=== PATIENT | female | born 1960 | race Caucasian/White ===

== ENCOUNTER 2018-09-01 23:57 | Emergency (ER) | payer BC ==
[2018-09-02] MEDS ORDERED: Ondansetron 4 MG Tab.DIS PO ONE (01:30)
--- NOTE | 2018-09-02 02:40 | EDM.PDOC ---
ED HPI GENERAL MEDICAL PROBLEM - General Chief Complaint: Head Injury Stated Complaint: FELL ON ICE Time Seen by Provider: 09/02/18 00:19 Source of Information: Reports: Patient, Family History Limitations: Reports: No Limitations - History of Present Illness INITIAL COMMENTS - FREE TEXT/NARRATIVE: This is a 58-year-old female. She was walking outside and her feet slipped out on the ice she fell backwards and hit her head. She has a large hematoma to the back of her head. She states she had no loss of consciousness and her back is not hurting in her buttocks is hurting but her neck is also sore. She comes to the ER for evaluation. She is complaining of less headache with this hematoma to her scalp. There are no lacerations and no bleeding is noted. Posterior Head Pain Score (Numeric/FACES): 6 - Related Data Allergies Allergy/AdvReac Type Severity Reaction Status Date / Time Sulfa (Sulfonamide Allergy Hives Verified 09/02/18 00:12 Antibiotics) Home Meds: Home Meds Acetaminophen/oxyCODONE [Percocet 325-5 MG] 1 - 2 each PO Q6H PRN #20 tab [Rx] Ondansetron [Zofran ODT] 4 mg PO Q6H PRN #12 tab.dis 09/02/18 [Rx] Past Medical History - Past Health History Medical/Surgical History: Denies Medical/Surgical History Social & Family History - Family History Family Medical History: Noncontributory - Tobacco Use Smoking Status *Q: Never Smoker - Caffeine Use Caffeine Use: Reports: Coffee, Soda - Recreational Drug Use Recreational Drug Use: No ED ROS GENERAL - Review of Systems Review Of Systems: See Below Constitutional: Denies: Fever, Chills HEENT: Reports: Other (As per history of present illness) Respiratory: Reports: No Symptoms Cardiovascular: Reports: No Symptoms Endocrine: Reports: No Symptoms GI/Abdominal: Reports: Nausea. Denies: Vomiting : Reports: No Symptoms Musculoskeletal: Reports: Neck Pain Skin: Reports: Other (Scalp hematoma) Neurological: Reports: Headache. Denies: Confusion, Dizziness, Syncope Psychiatric: Reports: No Symptoms Hematologic/Lymphatic: Reports: No Symptoms ED EXAM, HEAD INJURY - Physical Exam Exam: See Below Exam Limited By: No Limitations General Appearance: Alert, WD/WN, No Apparent Distress Head: Other (Patient has a hematoma to the posterior scalp about 8 cm in diameter) Nexus Criteria: No: Posterior, Midline Cervical Tenderness Eyes: Bilateral Eye: Normal Inspection Ears: Normal External Exam, Normal Canal, Normal TMs Nose: Normal Inspection Throat/Mouth: Normal Inspection, Normal Lips, Normal Voice, No Airway Compromise Neck: Full Range of Motion, Other (She has some mild paraspinal muscle soreness on palpation but no midline spine pain) Respiratory: No Respiratory Distress, Lungs Clear, Normal Breath Sounds Cardiovascular: Regular Rate, Rhythm, No Murmur Back Exam: Full Range of Motion Extremities: Normal Inspection, Normal Range of Motion Neurologic: Alert, Oriented x 3 Skin: Normal Color, Warm/Dry - Benton Coma Score Best Eye Response (Benton): (4) Open Spontaneously Best Verbal Response (Benton): (5) Oriented Best Motor Response (Federica): (6) Obeys Commands Benton Total: 15 Course - Vital Signs Last Recorded V/S: Last Vital Signs Temp 97.0 F 09/02/18 00:12 Pulse 63 09/02/18 00:12 Resp 16 09/02/18 00:12 BP 135/83 09/02/18 00:12 Pulse Ox 100 09/02/18 00:12 - Orders/Labs/Meds Orders: Active Orders 24 hr Category Date Time Status Cervical Spine wo Cont [CT] Stat Exams 09/02/18 00:32 Ordered Head wo Cont [CT] Stat Exams 09/02/18 00:32 Taken Meds: Medications Discontinued Medications Generic Name Dose Route Start Last Admin Trade Name Freq PRN Reason Stop Dose Admin Ondansetron HCl 4 mg 09/02/18 01:30 09/02/18 01:34 Zofran Odt PO 09/02/18 01:31 4 mg ONETIME ONE Administration - Radiology Interpretation Free Text/Narrative:: CT scan of the head did not show any acute intracranial abnormalities it did show the posterior scalp hematoma. CT scan of the cervical spine is not show any acute changes. - Re-Assessments/Exams Free Text/Narrative Re-Assessment/Exam: 09/02/18 02:40 I spoke to the patient as well as the significant other regarding the CT scan of the head and the neck. I encouraged her to put ice on the hematoma for the next 48 hours, to sleep and rest as much as she can for the next 48 hours and to follow-up with her family doctor middle of the week for recheck. She is to use the medicine for pain and nausea as needed. Departure - Departure Time of Disposition: 02:40 Disposition: Home, Self-Care 01 Condition: Fair Clinical Impression: Scalp hematoma Qualifiers: Encounter type: initial encounter Qualified Code(s): S00.03XA - Contusion of scalp, initial encounter Minor head injury Qualifiers: Encounter type: initial encounter Qualified Code(s): S09.90XA - Unspecified injury of head, initial encounter Cervical strain, acute Qualifiers: Encounter type: initial encounter Qualified Code(s): S16.1XXA - Strain of muscle, fascia and tendon at neck level, initial encounter - Discharge Information *PRESCRIPTION DRUG MONITORING PROGRAM REVIEWED*: No *COPY OF PRESCRIPTION DRUG MONITORING REPORT IN PATIENT [place]OO[place]: No Prescriptions: Acetaminophen/oxyCODONE [Percocet 325-5 MG] 1 - 2 each PO Q6H PRN #20 tab PRN Reason: Headache Ondansetron [Zofran ODT] 4 mg PO Q6H PRN #12 tab.dis PRN Reason: Nausea Instructions: Head Injury, Adult, [id number] Referrals: Stephanie Walker LABOR RELATIONS ANALYST [Primary Care Provider] - Additional Instructions: Rest and sleep as much you can for the next 48 hours, take the medication as needed for pain and nausea, continued to drink lots of fluids but if you do not feel like eating then don't, expect to feel sore everywhere tomorrow, follow up with your family doctor middle of this week for recheck of your head injury, return to the ER if your symptoms worsen markedly - My Orders Last 24 Hours: My Active Orders 09/02/18 00:32 Cervical Spine wo Cont [CT] Stat Head wo Cont [CT] Stat - Assessment/Plan Last 24 Hours: My Active Orders 09/02/18 00:32 Cervical Spine wo Cont [CT] Stat Head wo Cont [CT] Stat
--- NOTE | 2018-09-04 08:14 | CT ---
Head CT Technique: Multiple axial sections through the brain were obtained. Intravenous contrast was not utilized. Comparison: No prior intracranial imaging. Findings: Soft tissue hematoma is seen posteriorly within the scalp. Ventricles along with basal cisterns and sulci over the convexities are within normal limits. No abnormal parenchymal densities are seen. No evidence of intracranial hemorrhage. No midline shift or mass effect is seen. Bone window settings were reviewed which show no acute calvarial abnormality. Visualized sinuses are clear. Impression: 1. Scalp hematoma within the posterior region. 2. No acute intracranial abnormality is identified. No skull fracture is seen. Diagnostic code #2 I agree with preliminary report from [facility], finalized on 09/02/18, 2:59 AM Central Time
--- NOTE | 2018-09-04 10:03 | CT ---
CT cervical spine Technique: Multiple axial sections were obtained from above C1 inferiorly to the mid T2 level. Reconstructed sagittal and coronal images were reviewed. Comparison: No prior cervical spine imaging. Findings: Moderate disc space narrowing is noted at C4-C5, C5-C6 and C6-C7. Posterior osteophytes are noted at C3-C4 through C6-C7. Vertebral body heights are maintained. Mild degenerative apophyseal change is noted throughout the cervical spine. Degenerative spurring is noted within the uncovertebral joints at C4-C5 and C5-C6. Mild left-sided neural foraminal stenosis noted at C4-C5. Mild left-sided neural foraminal stenosis is noted at C5-C6. Other neural foramina are felt to be patent. No bony central canal stenosis is seen. No fracture or abnormal subluxation is seen. Impression: 1. Degenerative change as noted above. Nothing acute is appreciated on CT study of the cervical spine. Diagnostic code #2 I agree with preliminary report from [facility], finalized on 09/02/18, 2:59 AM Central Time
== END 2018-09-02 02:53 | disposition home or self-care (01) ==
LOC: JD.ED 23:57
DX: S16.1XXA Strain of muscle, fascia and tendon at neck level, initial encounter (principal); S00.03XA Contusion of scalp, initial encounter; Z88.2 Allergy status to sulfonamides; W00.0XXA Fall on same level due to ice and snow, initial encounter
CPT/HCPCS: 70450; 72125; 99284; A9270; 99283

== ENCOUNTER 2019-08-11 14:27 | Emergency (ER) | payer BC ==
--- NOTE | 2019-08-11 15:14 | EDM.PDOC ---
ED HPI GENERAL MEDICAL PROBLEM - General Chief Complaint: Upper Extremity Injury/Pain Stated Complaint: R WRIST INJURY Time Seen by Provider: 08/11/19 14:33 Source of Information: Reports: Patient History Limitations: Reports: No Limitations - History of Present Illness INITIAL COMMENTS - FREE TEXT/NARRATIVE: Patient is a 59-year-old female who presents with complaints of right wrist pain and swelling after falling while ice skating. Patient states she slipped and reached backward to catch herself and the force of the fall was directly on her right palm. She has no history of previous injury to this wrist. Right Wrist Pain Score (Numeric/FACES): 5 - Related Data Allergies Allergy/AdvReac Type Severity Reaction Status Date / Time Sulfa (Sulfonamide Allergy Hives Verified 09/02/18 00:12 Antibiotics) latex Allergy Rash Uncoded 08/11/19 14:32 Home Meds: Home Meds . [No Known Home Meds] 08/11/19 [History] Past Medical History - Past Health History Medical/Surgical History: Denies Medical/Surgical History Social & Family History - Family History Family Medical History: Noncontributory - Tobacco Use Smoking Status *Q: Never Smoker - Caffeine Use Caffeine Use: Reports: Coffee, Soda - Recreational Drug Use Recreational Drug Use: No Review of Systems - Review of Systems Review Of Systems: Comprehensive ROS is negative, except as noted in HPI. ED EXAM, GENERAL - Physical Exam Exam: See Below General Appearance: Alert, WD/WN, No Apparent Distress Respiratory/Chest: No Respiratory Distress, Lungs Clear, Normal Breath Sounds, No Accessory Muscle Use, Chest Non-Tender Cardiovascular: Normal Peripheral Pulses, Regular Rate, Rhythm, No Edema, No Gallop, No JVD, No Murmur, No Rub Extremities: Other (Swelling over the dorsoradial aspect of the right wrist.) Neurological: Alert, Oriented, CN II-XII Intact, Normal Cognition, Normal Gait, Normal Reflexes, No Motor/Sensory Deficits Psychiatric: Normal Affect, Normal Mood Skin Exam: Warm, Dry, Intact, Normal Color, No Rash Course - Vital Signs Last Recorded V/S: Last Vital Signs Temp Pulse 63 08/11/19 14:33 Resp 17 08/11/19 14:33 BP Pulse Ox 99 08/11/19 14:33 - Orders/Labs/Meds Orders: Active Orders 24 hr Category Date Time Status Wrist Comp Min 3V Rt [CR] Stat Exams 08/11/19 14:35 Taken - Re-Assessments/Exams Free Text/Narrative Re-Assessment/Exam: 08/11/19 15:11 X-ray of the right wrist does show a fracture of the distal radius. Short arm posterior splint was applied. Instructed patient to follow-up with Dr. Shah in approximately 1 week. Discharge instructions as documented. Departure - Departure Time of Disposition: 15:11 Disposition: Home, Self-Care 01 Condition: Fair Clinical Impression: Fracture of radius Qualifiers: Encounter type: initial encounter Radius location: distal Fracture type: closed Fracture morphology: unspecified fracture morphology Laterality: right Qualified Code(s): S52.501A - Unspecified fracture of the lower end of right radius, initial encounter for closed fracture - Discharge Information *PRESCRIPTION DRUG MONITORING PROGRAM REVIEWED*: No *COPY OF PRESCRIPTION DRUG MONITORING REPORT IN PATIENT [place]OO[place]: No Instructions: Radial Fracture Referrals: Stephanie Walker NP [Primary Care Provider] - Sesar Shah MD [Physician] - Additional Instructions: You were seen in the emergency department today for pain and swelling to your right wrist after falling while ice skating. X-ray does show a fracture of the distal radius. A splint has been applied to your wrist. Keep this dry. Recommend that you elevate the extremity when at rest and apply ice directly over the area of injury through the splint. You may use [id number] Tylenol as needed for any discomfort. Call to schedule an appointment with Dr. Shah, orthopedist, for approximately 1 week. Return to the ER as needed. Sepsis Event Note - Evaluation Sepsis Screening Result: No Definite Risk - Focused Exam Vital Signs: Vital Signs Pulse Resp Pulse Ox 08/11/19 14:33 63 17 99 Date Exam was Performed: 08/11/19 Time Exam was Performed: 15:09 - My Orders Last 24 Hours: My Active Orders 08/11/19 14:35 Wrist Comp Min 3V Rt [CR] Stat - Assessment/Plan Last 24 Hours: My Active Orders 08/11/19 14:35 Wrist Comp Min 3V Rt [CR] Stat
--- NOTE | 2019-08-11 16:33 | CR ---
Right wrist: 4 views of the right wrist were obtained. Comparison: No prior right wrist exam. Distal radial fracture is seen with posterior impaction causing dorsal tilt of the distal radial articular margin. No additional fracture is appreciated. Previous resection of the trapezium is noted. Deformity is seen within the base of the 1st metacarpal compatible with old injury. Prior surgery also noted within the base of the 1st metacarpal. Screw noted within the distal portion of the proximal phalanx of the thumb. Chondrocalcinosis is noted within the triangular fibrocartilage as well as within portions of the articular cartilage. Impression: 1. Distal radial fracture with posterior impaction. 2. Prior surgery, old fracture and degenerative change. Diagnostic code #3 This report was dictated in [place] Standard Time
== END 2019-08-11 15:25 | disposition home or self-care (01) ==
LOC: JD.ED 14:27
DX: S52.501A Unspecified fracture of the lower end of right radius, initial encounter for closed fracture (principal); Z88.2 Allergy status to sulfonamides; Z91.040 Latex allergy status; W00.0XXA Fall on same level due to ice and snow, initial encounter; Y93.21 Activity, ice skating
CPT/HCPCS: 29125; 73110-26-RT; 73110-RT; 99283; 99283-25

== ENCOUNTER 2020-01-02 16:05 | Emergency (ER) | payer BC ==
[2020-01-02] MEDS ORDERED: Ondansetron 4 MG/2 ML SDV IVPUSH ONE (16:40)
[2020-01-02] MEDS ORDERED: HYDROmorphone 0.5 MG/0.5 ML Syringe IVPUSH ONE (16:40)
[2020-01-02] MEDS ORDERED: Dextrose 5%-0.9% NaCl 1,000 ML IV SCH (16:45)
--- NOTE | 2020-01-02 16:47 | EDM.PDOC ---
ED HPI GENERAL MEDICAL PROBLEM - General Chief Complaint: Flank Pain Stated Complaint: LOW BACK PAIN/ABD PAIN/NAUSEA Time Seen by Provider: 01/02/20 16:29 Source of Information: Reports: Patient, Family (spouse) History Limitations: Reports: No Limitations - History of Present Illness INITIAL COMMENTS - FREE TEXT/NARRATIVE: 59-year-old female attends the ED in the accompaniment of her . She reports that she has gradually worsening low back pain for the better part of a week and possibly even 10 days. She has associated increased urinary frequency without dysuria she states a bowel movement does give her some relief of the pain. She feels as if a corn cob has been placed in her rectal vault. Bowel function is otherwise normal with soft stool no blood. She has had previous hemorrhoid surgery and was told she had a few diverticuli at that time but she has no history of diverticulitis. Today she has had chills and fever probably starting yesterday. She has no appetite for the last 2 days. Having had chicken soup only yesterday. He is nauseated without any vomiting. Previous abdominal surgeries that of C-sections x2. Sataes it does not really hurt to walk. 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 She denies cough or sputum production. Onset: Gradual Onset Date: 12/26/19 (Gradually worsening low back rectal pain discomfort for the last 8 to 10 days) Duration: Day(s):, Getting Worse Location: Reports: Abdomen, Back (Diffuse lower abdominal pain Fuhs low back pain with pressure in the rectal area.) Quality: Reports: Ache, Pressure Severity: Severe (Noted 10) Improves with: Reports: Other (All movement seems to help relieve some of the back pain and rectal pressure discomfort) Worsens with: Reports: Other (Certain movements and standing seem to make the pain worse.) Context: Reports: Other. Denies: Activity, Exercise, Lifting, Sick Contact, Trauma Associated Symptoms: Reports: Fever/Chills, Loss of Appetite, Malaise, Nausea/Vomiting, Weakness (Nausea without vomiting). Denies: Chest Pain, Cough (Continuous occurrence), cough w sputum, Diaphoresis, Headaches, Rash, Seizure, Shortness of Breath, Syncope Treatments GAS BLENDER: Reports: Acetaminophen - Related Data Allergies Allergy/AdvReac Type Severity Reaction Status Date / Time Sulfa (Sulfonamide Allergy Severe Hives Verified 01/02/20 16:19 Antibiotics) latex Allergy Severe Rash Uncoded 01/02/20 16:19 Home Meds: Home Meds Levofloxacin [Levaquin] 500 mg PO DAILY #10 tablet 01/02/20 [Rx] oxyCODONE HCl/Acetaminophen [Percocet 5-325 mg Tablet] 1 - 2 each PO Q4H PRN #20 tablet 01/02/20 [Rx] Past Medical History - Past Health History Medical/Surgical History: Denies Medical/Surgical History Gastrointestinal History: Reports: Colon Polyp, Diverticulosis 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: Musculoskeletal History: Reports: Arthritis - Past Surgical History Female Surgical History: Reports: Section (X2.) Neurological Surgical History: Reports: Discectomy (Lumbar spine.), Other (See Below) Musculoskeletal Surgical History: Reports: Arthroscopic Knee Social & Family History - Family History Family Medical History: Noncontributory - Tobacco Use Smoking Status *Q: Never Smoker - Caffeine Use Caffeine Use: Reports: Coffee, Soda - Living Situation & Occupation Living situation: Reports: Occupation: Employed ED ROS GENERAL - Review of Systems Review Of Systems: See Below Constitutional: Reports: Fever, Chills, Malaise, Weakness, Fatigue, Decreased Appetite (Not eating anything solid for 2 days only minor liquids the last 2 days.). Denies: Weight Loss HEENT: Reports: No Symptoms Respiratory: Reports: No Symptoms Cardiovascular: Reports: No Symptoms Endocrine: Reports: Fatigue GI/Abdominal: Reports: Abdominal Pain (Diffuse lower abdominal pain but more into the lower back.), Nausea. Denies: Constipation, Diarrhea, Hematemesis, Hematochezia, Vomiting : Reports: Frequency, Other (Very rectal pressure discomfort.). Denies: Dysuria, Flank Pain, Incontinence Musculoskeletal: Reports: Back Pain (Used increased low back pain) Skin: Reports: No Symptoms Neurological: Reports: No Symptoms Psychiatric: Reports: No Symptoms Hematologic/Lymphatic: Reports: No Symptoms Immunologic: Reports: No Symptoms ED EXAM,LOWER BACK PAIN/INJURY - Physical Exam Exam: See Below Exam Limited By: Other (Temperature is 36.7 although she does feel warm to palpation. Heart rate is 71 with respiratory to 16 sats are 99% on room air BP is 152/75) General Appearance: Alert, WD/WN, Moderate Distress, Other (Looks quite uncomfortable. She does feel mildly warm to palpation.) Eye Exam: Bilateral Eye: Normal Inspection (No scleral icterus or blepharal pallor.), PERRL Throat/Mouth: Other Neck: Normal Inspection, Supple, Non-Tender, Full Range of Motion. No: Carotid Bruit, Lymphadenopathy (L), Lymphadenopathy (R) Respiratory/Chest: No Respiratory Distress, Lungs Clear, Normal Breath Sounds, No Accessory Muscle Use Cardiovascular: Normal Peripheral Pulses, Regular Rate, Rhythm, No Edema, No Gallop, No Murmur, No Rub GI/Abdominal: Soft, Non-Tender, No Organomegaly, No Mass, Pelvis Stable, Abnormal Bowel Sounds (Sounds are fairly hyperactive throughout all 4 quadrants.). No: Guarding, Rigid, Rebound, Tender Back Exam: Normal Inspection, Decreased Range of Motion, Other (Is a well-healed midline lumbar spine surgical scar. She has had previous discectomy she believes at L5-S1.). No: CVA Tenderness (L), CVA Tenderness (R) Extremities: Normal Inspection, Normal Range of Motion, Non-Tender, No Pedal Edema Neurological: Normal Mood/Affect, Normal Dorsiflexion, CN II-XII Intact, No Motor/Sensory Deficits, Oriented x 3 Psychiatric: Other (She is ill.) Skin Exam: Warm, Dry, Intact, Normal Color, No Rash Course - Vital Signs Last Recorded V/S: Last Vital Signs Temp 36.7 C 01/02/20 16:16 Pulse 71 01/02/20 16:16 Resp 16 01/02/20 16:16 BP 152/75 H 01/02/20 16:16 Pulse Ox 99 01/02/20 16:16 - Orders/Labs/Meds Orders: Active Orders 24 hr Category Date Time Status CULTURE BLOOD [BC] Stat Lab 01/02/20 17:52 Received CULTURE BLOOD [BC] Stat Lab 01/02/20 18:01 Received Blood Culture x2 Reflex Set [OM.PC] Stat Oth 01/02/20 16:41 Ordered Labs: Laboratory Tests 01/02/20 01/02/20 01/02/20 Range/Units 16:30 16:30 16:30 WBC 9.74 (3.98-10.04) K/mm3 RBC 4.11 (3.98-5.22) M/mm3 Hgb 12.3 (11.2-15.7) gm/dl Hct 37.7 (34.1-44.9) % MCV 91.7 (79.4-94.8) fl MCH 29.9 (25.6-32.2) pg MCHC 32.6 (32.2-35.5) g/dl RDW Std Deviation 43.0 (36.4-46.3) fL Plt Count 303 (182-369) K/mm3 MPV 9.8 (9.4-12.3) fl Neutrophils % (Manual) 59 (40-60) % Band Neutrophils % 0 (0-10) % Lymphocytes % (Manual) 31 (20-40) % Atypical Lymphs % 0 % Monocytes % (Manual) 8 (2-10) % Eosinophils % (Manual) 2 (0.7-5.8) % Basophils % (Manual) 0 L (0.1-1.2) Platelet Estimate Adequate Plt Morphology Comment Normal RBC Morph Comment Normal ESR 24 H (0-20) mm/hr Sodium 133 L (136-145) mEq/L Potassium 3.9 (3.5-5.1) mEq/L Chloride 96 L (98-107) mEq/L Carbon Dioxide 25 (21-32) mEq/L Anion Gap 15.9 H (5-15) BUN 7 (7-18) mg/dL Creatinine 0.9 (0.55-1.02) mg/dL Est Cr Clr Drug Dosing 56.36 mL/min Estimated GFR (MDRD) > 60 (>60) mL/min BUN/Creatinine Ratio 7.8 L (14-18) Glucose 93 (74-106) mg/dL Lactic Acid (0.4-2.0) mmol/L Calcium 9.1 (8.5-10.1) mg/dL Magnesium 1.9 (1.8-2.4) mg/dl Total Bilirubin 0.4 (0.2-1.0) mg/dL AST 21 (15-37) U/L ALT 22 (14-59) U/L Alkaline Phosphatase 62 (46-116) U/L C-Reactive Protein 4.0 H* (<1.0) mg/dL Total Protein 8.0 (6.4-8.2) g/dl Albumin 3.8 (3.4-5.0) g/dl Globulin 4.2 gm/dL Albumin/Globulin Ratio 0.9 L (1-2) Urine Color (Yellow) Urine Appearance (Clear) Urine pH (5.0-8.0) Ur Specific [place] (1.005-1.030) Urine Protein (Negative) Urine Glucose (UA) (Negative) Urine Ketones (Negative) Urine Occult Blood (Negative) Urine Nitrite (Negative) Urine Bilirubin (Negative) Urine Urobilinogen (0.2-1.0) Ur Leukocyte Esterase (Negative) Urine RBC (0-5) /hpf Urine WBC (0-5) /hpf Ur Squamous Epith Cells (0-5) /hpf Urine Bacteria (FEW) /hpf Urine Mucus (FEW) /hpf 01/02/20 01/02/20 Range/Units 16:45 18:55 WBC (3.98-10.04) K/mm3 RBC (3.98-5.22) M/mm3 Hgb (11.2-15.7) gm/dl Hct (34.1-44.9) % MCV (79.4-94.8) fl MCH (25.6-32.2) pg MCHC (32.2-35.5) g/dl RDW Std Deviation (36.4-46.3) fL Plt Count (182-369) K/mm3 MPV (9.4-12.3) fl Neutrophils % (Manual) (40-60) % Band Neutrophils % (0-10) % Lymphocytes % (Manual) (20-40) % Atypical Lymphs % % Monocytes % (Manual) (2-10) % Eosinophils % (Manual) (0.7-5.8) % Basophils % (Manual) (0.1-1.2) Platelet Estimate Plt Morphology Comment RBC Morph Comment ESR (0-20) mm/hr Sodium (136-145) mEq/L Potassium (3.5-5.1) mEq/L Chloride (98-107) mEq/L Carbon Dioxide (21-32) mEq/L Anion Gap (5-15) BUN (7-18) mg/dL Creatinine (0.55-1.02) mg/dL Est Cr Clr Drug Dosing mL/min Estimated GFR (MDRD) (>60) mL/min BUN/Creatinine Ratio (14-18) Glucose (74-106) mg/dL Lactic Acid 0.4 (0.4-2.0) mmol/L Calcium (8.5-10.1) mg/dL Magnesium (1.8-2.4) mg/dl Total Bilirubin (0.2-1.0) mg/dL AST (15-37) U/L ALT (14-59) U/L Alkaline Phosphatase (46-116) U/L C-Reactive Protein (<1.0) mg/dL Total Protein (6.4-8.2) g/dl Albumin (3.4-5.0) g/dl Globulin gm/dL Albumin/Globulin Ratio (1-2) Urine Color Light yellow (Yellow) Urine Appearance Clear (Clear) Urine pH 6.5 (5.0-8.0) Ur Specific [place] 1.010 (1.005-1.030) Urine Protein Negative (Negative) Urine Glucose (UA) Negative (Negative) Urine Ketones 1+ H (Negative) Urine Occult Blood Trace-lysed H (Negative) Urine Nitrite Negative (Negative) Urine Bilirubin Negative (Negative) Urine Urobilinogen 0.2 (0.2-1.0) Ur Leukocyte Esterase Negative (Negative) Urine RBC Not seen (0-5) /hpf Urine WBC 0-5 (0-5) /hpf Ur Squamous Epith Cells 0-5 (0-5) /hpf Urine Bacteria Rare (FEW) /hpf Urine Mucus Not seen (FEW) /hpf Meds: Medications Discontinued Medications Generic Name Dose Route Start Last Admin Trade Name Freq PRN Reason Stop Dose Admin Diatrizoate Meglum/Diatrizoate Sod 120 ml 01/02/20 18:05 01/02/20 18:05 Gastrografin 37% PO 01/02/20 18:06 45 ml ONETIME ONE Administration Hydromorphone HCl 0.5 mg 01/02/20 16:40 01/02/20 17:31 Dilaudid IVPUSH 01/02/20 16:41 0.5 mg ONETIME ONE Administration Dextrose/Sodium Chloride 1,000 mls @ 999 mls/hr 01/02/20 16:45 01/02/20 17:34 Dextrose 5%-Normal Saline IV 999 mls/hr ASDIRECTED HERNESTO Administration Iopamidol 100 ml 01/02/20 18:47 01/02/20 20:07 Isovue-300 (61%) IVPUSH 01/02/20 18:48 100 ml ONETIME ONE Administration Ondansetron HCl 4 mg 01/02/20 16:40 01/02/20 17:32 Zofran IVPUSH 01/02/20 16:41 4 mg ONETIME ONE Administration Sodium Chloride 10 ml 01/02/20 18:47 01/02/20 20:16 Saline Flush FLUSH 10 ml ONETIME PRN Administration Keep Vein Open - Radiology Interpretation Free Text/Narrative:: 59-year-old female presents to the ED with gradually worsening diffuse low back pain for the last 8 days to 10 days. Pain rating up into her left flank area. Associated urinary frequency without dysuria urgency. She states she gets relief of her diffuse low back pain after having a bowel movement and perhaps slightly after voiding and emptying her bladder. She developed a fever over the last 48 hours with some chills. She is nauseated and has no appetite. She has not vomited. She is volume depleted as she has had very little oral intake over the last 48 hours. Feels lightheaded dizzy and ill. Clinically she does feel slightly warm to palpation. Nurses do not recorded temperature. Plan she will have a septic work-up carried out urinalysis as soon as one becomes available. Low back pain suggest that she may have low-lying diverticulitis or gynecological related illness to cause pain and fever. Treated with IV D5 normal saline at open. Given Zofran 4 mg IV for nausea relief and Dilaudid 0.5 mg IV for pain relief. - Re-Assessments/Exams Free Text/Narrative Re-Assessment/Exam: 01/02/20 17:55 Total white count is 9.74. The differential is 59% neutrophils with no bands cells hemoglobin is 12.3 with hematocrit of 37.7. MCV is normal. Platelet count 303,000. Sodium slightly low at 133. Potassium 3.9. Chloride is 96 with a bicarb of 25 anion gap is 15.9. BUN is 7 with a creatinine of 0.9. GFR is greater than 60. Glucose is 93 with a calcium of 9.1 magnesium is 1.9. Liver function is normal. C-reactive protein is mildly elevated at 4.0. Total protein is 8.0 with an albumin fraction of 3.8. Urinalysis shows trace of lysed occult blood. 1+ ketones no signs of urinary tract infection. 01/02/20 17:59 KUB reveals scattered gas noted within nondilated small bowel as well as a small amount of colonic gas. Appears to be within normal limits. No soft tissue abnormalities are seen. Calcifications are noted within the pelvis which are compatible with phleboliths. Mild scoliosis is noted within the spine. Patient reports that she is feeling better as far as the nausea goes and pain relief with IV meds. Do not show any specific etiology for infection but show a slightly elevated CRP. Concern is for possible very low-lying diver ticulitis to cause her low back pain. She believes she may be able to keep down the oral contrast and we will give it a try. She will therefore be booked for CT of the abdomen and pelvis with oral and IV contrast. 01/02/20 19:18 sed rate came back at 23. 01/02/20 19:58 T of the abdomen and pelvis has been performed formed with oral and IV contrast. She does have a moderate sized hiatal hernia. Cardiac silhouette is normal lung bases are clear. Liver appears homogeneous with no note any intraductal dilatation. She has an ill-defined lesionin the central Rt lobe of liver is stable from previous exam. The head of the pancreas is somewhat prominent with smooth borders. No dilatation of the pancreatic ducts appreciated. Both kidneys are within normal limits without any signs of renal stones both ureters are normal. Bladder is full. There is stool throughout the rectal vault. No signs of diverticulitis identified on my examination pelvis contains no fluid. Both ovaries are very minimal in size. Appendix is seen and is normal. I will await the radiologist's opinion. 01/02/20 20:06 the scan has now been over read by the radiologist. He indicates that he was able to compared to a CT of abdomen pelvis done on 30 June 2011. He agrees visualized lung bases show nothing acute. Identifies a stable low- density lesion with noted within the caudate lobe most likely representing a hemangioma. Second small low-density lesion noted more centrally within the right liver which appears to be stable. Lean is normal in size pancreas shows no discrete abnormality. Adrenal glands show no nodules. Kidneys show symmetric contrast enhancement without hydronephrosis or mass. Gallbladder contains no calcified gallstones adrenal glands show no nodules kidneys show symmetric contrast enhancement without hydronephrosis or mass. Mildly prominent lymph nodes are seen slightly inferior to the right kidney. Appendix is within normal limits. No other adenopathy is seen within the abdomen. No pelvic mass or adenopathy is seen. No free fluid or inflammatory changes are identified. No bowel dilatation or bowel obstruction is identified. Slightly prominent lymph nodes inferior to the right kidney evident. No other abnormalities seen. Patient is somewhat older than expected for mesenteric adenitis although this may be a variant of this etiology. 01/02/20 20:33 the patient being febrile with some chills I am going to place her on Levaquin 500 mg once daily for the next 10 days. I cannot explain the exact etiology of her illness other than nonspecific adenitis in the omentum. Ports that she seems to get worse if she eats. She also is having increased low back pain made which well may be due to further disc protrusion. 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 To give her Percocet tablets 5/325 mg tablets 1 or 2 tablets at bedtime primarily to help her sleep. 14 tablets provided we will follow-up if she is not markedly improved in 72 hours time Departure - Departure Time of Disposition: 20:34 Disposition: Home, Self-Care 01 Condition: Fair Clinical Impression: Nonspecific mesenteric adenitis Abdominal pain Qualifiers: Abdominal location: lower abdomen, unspecified Qualified Code(s): R10.30 - Lower abdominal pain, unspecified Low back pain Qualifiers: Chronicity: unspecified Back pain laterality: bilateral Sciatica presence: without sciatica Qualified Code(s): M54.5 - Low back pain - Discharge Information *PRESCRIPTION DRUG MONITORING PROGRAM REVIEWED*: Not Applicable *COPY OF PRESCRIPTION DRUG MONITORING REPORT IN PATIENT BOOGIE: Not Applicable Prescriptions: Levofloxacin [Levaquin] 500 mg PO DAILY #10 tablet oxyCODONE HCl/Acetaminophen [Percocet 5-325 mg Tablet] 1 - 2 each PO Q4H PRN #20 tablet PRN Reason: pain relief. Instructions: Abdominal Pain, Adult, [id number] Referrals: Stephanie Walker NP [Primary Care Provider] - Forms: ED Department Discharge Additional Instructions: Evaluation in the emergency room today in regards to acute onset of fever with some chills and difficulty eating as it makes abdominal pain worse. No vomiting. Worsening low back pain over the last several days which likely requires further investigation and imaging by way of MRI. Lab test revealed a normal white count and differential. Markers for infection were elevated with a CRP of 4.0 normal is 1 suggesting underlying bacterial infection. Chest x-ray r evealed no signs of infection in particular no pneumonia. CT scan of the abdomen revealed some enlarged lymph nodes particularly adjacent below the right kidney in the mesentery suggesting reactive lymphadenitis. The cause of this infection is unclear but in adults it is usually bacterial in origin which correlates with your lab test. Urine test was completely normal. CT did not show any evidence of active diverticulitis of the colon. Suggest treatment to be antibiotic Levaquin 500 mg once daily for the next 10 days starting tonight. I also write a wrote a prescription for Percocet tabs 5/325 mg 1 or 2 tablets at bedtime to help sleep preferably with a little food in your stomach. This was should also alleviate some of your back pain. Expect improvement in the abdominal symptoms and ability to eat over the next 72 hours.Back pain I think will require further investigation by way of MRI to have a better look at the discs. His follow-up with your personal care physician in this regard continue Motrin as needed for fever and pain relief. Suggest off work tomorrow and the next day due to current illness. Sepsis Event Note (ED) - Evaluation Sepsis Screening Result: No Definite Risk - Focused Exam Vital Signs: Vital Signs Temp Pulse Resp BP Pulse Ox 01/02/20 16:16 36.7 C 71 16 152/75 H 99 - My Orders Last 24 Hours: My Active Orders 01/02/20 16:41 Blood Culture x2 Reflex Set [OM.PC] Stat 01/02/20 17:52 CULTURE BLOOD [BC] Stat 01/02/20 18:01 CULTURE BLOOD [BC] Stat - Assessment/Plan Last 24 Hours: My Active Orders 01/02/20 16:41 Blood Culture x2 Reflex Set [OM.PC] Stat 01/02/20 17:52 CULTURE BLOOD [BC] Stat 01/02/20 18:01 CULTURE BLOOD [BC] Stat
--- NOTE | 2020-01-02 17:21 | CR ---
Abdomen: Supine view of the abdomen was obtained. Comparison: No previous study. Scattered gas within nondilated small bowel is seen as well as a small amount of colonic gas. This appears within normal limits. No soft tissue abnormalities are seen. Calcifications are noted within the pelvis which are compatible with phleboliths. Mild scoliosis is noted within the spine. Impression: 1. Nothing acute is appreciated on supine abdominal x-ray. Diagnostic code #2 This report was dictated in MDT
[2020-01-02] MEDS ORDERED: Diatrizoate Meglumine/Diatrizoate Sodium 37% 120 ML Bottle PO ONE (18:05)
[2020-01-02] MEDS ORDERED: Sodium Chloride 0.9% 10 ML Syringe FLUSH PRN (18:47)
[2020-01-02] MEDS ORDERED: Iopamidol 612 MG/ML 100 ML Bottle IVPUSH ONE (18:47)
--- NOTE | 2020-01-02 20:01 | CT ---
CT abdomen and pelvis Technique: Multiple axial sections were obtained from slightly below the top of the liver inferiorly through the pubic symphysis. Intravenous and oral contrast was utilized. Comparison: Prior CT abdomen and pelvis exam of 07/20/11. Findings: Visualized lung bases show nothing acute. Stable low density lesion noted within the caudate lobe most likely due to stable hemangioma. 2nd small low density lesion noted more centrally within the right liver which appears stable. Spleen is normal in size. Pancreas shows no discrete abnormality. Gallbladder contains no calcified gallstones. Adrenal glands show no nodule. Kidneys show symmetric contrast enhancement without hydronephrosis or mass. Mildly prominent lymph nodes are seen slightly inferior to the right kidney. Appendix appears within normal limits. No other adenopathy is seen within the abdomen. No pelvic mass or adenopathy is seen. No free fluid or inflammatory change is seen. No bowel dilatation or bowel obstruction is seen. Scoliosis and degenerative change is scattered within the spine. Impression: 1. Slightly prominent lymph nodes inferior to the right kidney. No other abnormal lymph nodes are seen. Patient is somewhat older than expected for mesenteric adenitis although this may be a variant of this etiology. 2. Adjacent appendix appears normal in size without inflammatory change. 3. Nothing acute is otherwise appreciated. Other stable findings as described above. Diagnostic code #3 This report was dictated in MDT
== END 2020-01-02 21:00 | disposition home or self-care (01) ==
LOC: JD.ED 16:05
DX: M54.5 Low back pain (principal); I88.0 Nonspecific mesenteric lymphadenitis; M19.90 Unspecified osteoarthritis, unspecified site; Z88.2 Allergy status to sulfonamides; Z91.040 Latex allergy status; Z79.899 Other long term (current) drug therapy; Z98.890 Other specified postprocedural states
CPT/HCPCS: 36415; 74018; 74177; 80053; 81001; 83605; 83735; 85007; 85027; 85652; 86140; 87040; 96374; 96375; 99284; J1170; J2405; J7042; Q9963; Q9967

== ENCOUNTER 2022-04-14 15:35 | Emergency (ER) | payer BC ==
[2022-04-14] MEDS ORDERED: Aspirin 81 MG Tab.Chew PO ONE (16:25)
[2022-04-14] MEDS ORDERED: Sodium Chloride 0.9% 10 ML Syringe FLUSH PRN (16:25)
[2022-04-14] MEDS ORDERED: Heparin Sodium 5,000 Units/ML Vial IVPUSH ONE (18:06)
[2022-04-14] MEDS ORDERED: Heparin Sodium/D5W 25,000 UNITS/500 ML BAG IV SCH (18:15)
[2022-04-14] MEDS ORDERED: LORazepam 2 MG/ML SDV IVPUSH ONE (18:42)
== END 2022-04-14 21:00 ==
LOC: JD.ED 15:35
DX: I21.4 Non-ST elevation (NSTEMI) myocardial infarction (principal); Z88.2 Allergy status to sulfonamides; Z91.040 Latex allergy status; Z79.899 Other long term (current) drug therapy; Z20.822 Contact with and (suspected) exposure to COVID-19
CPT/HCPCS: 36415; 71045; 80053; 84484; 85025; 85379; 85730; 87635; 93005; 96365; 96366; 96375; 99285; A9270; J1644; J2060; J3490; U0002

== ENCOUNTER 2022-04-19 10:32 | Emergency (ER) | payer BC ==
[2022-04-19 12:10] LABS: ESTIMATED GFR 84 mL/min (>60)
[2022-04-19 12:43] LABS: HEMOGLOBIN A1C 5.4 %
== END 2022-04-19 15:06 | disposition home or self-care (01) ==
LOC: JD.ED 10:32
DX: R79.89 Other specified abnormal findings of blood chemistry (principal); Z88.2 Allergy status to sulfonamides; Z91.040 Latex allergy status; Z79.899 Other long term (current) drug therapy
CPT/HCPCS: 36415; 80053; 80061; 83036; 84439; 84443; 84484; 85025; 86140; 93005; 99285